=== PATIENT | female | born 1945 | race Caucasian/White ===

== ENCOUNTER 2021-04-29 06:51 | Day surgery (SDC) | payer MEDICARE ==
[2021-04-28 12:38] LABS: BASOPHILS % (AUTO) 0.4 % (0-1); EOSINOPHILS % (AUTO) 0.6 % (0-6); HEMATOCRIT 36.2 % (35.0-45.0); LYMPHOCYTES # (AUTO) 1.1 X10'3 (1.1-4.8); LYMPHOCYTES % (AUTO) 17.6 % (21-51); MEAN CORPUSCULAR HEMOGLOBIN 29.2 PG (27.0-31.0); MEAN CORPUSCULAR VOLUME 88.3 FL (78-98); MONOCYTES # (AUTO) 0.5 X10'3 (0-0.9); MONOCYTES % (AUTO) 7.4 % (2-12); NEUTROPHILS # (AUTO) 4.7 X10'3 (1.8-7.7); PLATELET COUNT 404 X10'3 (140-440); RED CELL DISTRIBUTION WIDTH 15.8 % (11.5-14.5); WHITE BLOOD COUNT 6.4 X10'3 (4.5-11.0)
[2021-04-28 12:52] LABS: PARTIAL THROMBOPLASTIN TIME 27 SECONDS (22-32)
[2021-04-28 13:16] LABS: ALANINE AMINOTRANSFERASE 17 U/L (12-78); ALBUMIN 3.9 G/DL (3.4-5.0); ALBUMIN/GLOBULIN RATIO 1.1 (1.1-1.5); ALKALINE PHOSPHATASE 88 IU/L (46-116); ANION GAP 13 (8-16); ASPARTATE AMINO TRANSFERASE 21 U/L (10-37); BILIRUBIN,TOTAL 0.6 MG/DL (0.1-1.0); BLOOD UREA NITROGEN 18 MG/DL (7-18); BUN/CREATININE RATIO 22.5 (6.6-38.0); CALCIUM 9.1 MG/DL (8.5-10.1); CHLORIDE 101 MMOL/L (99-107); GLUCOSE 91 MG/DL (70-104); POTASSIUM 3.9 MMOL/L (3.5-5.1); SODIUM 140 MMOL/L (135-145); TOTAL CARBON DIOXIDE 26.4 MMOL/L (24-32); TOTAL PROTEIN 7.6 G/DL (6.4-8.2); eGFR 70 ML/MIN
[~2021-04-29] VITALS: Ht 170.2 cm; Wt 87.3 kg
[2021-04-29] VITALS (12 sets, daily range): BP systolic 93–123; BP diastolic 55–87
[2021-04-29] MEDS ORDERED: normal saline 1,000 ML IV SCH (07:15)
[2021-04-29] MEDS ORDERED: diphenhydrAMINE 25mg capsule PO PRN (07:15)
[2021-04-29] MEDS ORDERED: LORazepam 0.5 MG tablet PO PRN (07:15)
[2021-04-29] MEDS ORDERED: ATOR10TA70 PO (07:45)
[2021-04-29] MEDS ORDERED: BENA40TA72 PO (07:45)
[2021-04-29] MEDS ORDERED: HYDR25TA4 PO (07:45)
[2021-04-29] MEDS ORDERED: CABE0.5T2 PO (07:45)
[2021-04-29] MEDS ORDERED: ALEN70TA80 PO (07:45)
[2021-04-29] MEDS ORDERED: AMLO10TA13 PO (07:45)
[2021-04-29] MEDS ORDERED: CITA20TA26 PO (07:45)
[2021-04-29] MEDS ORDERED: fentaNYL/PF 50MCG/1 ML 2ML syringe ONE (08:57)
[2021-04-29] MEDS ORDERED: midazolam 1 mg/ML 2ml injection ONE (08:57)
[2021-04-29] MEDS ORDERED: LIDOcaine 1% (10mg/ml)w/preservative injection 20ml MDV ONE (08:58)
[2021-04-29] MEDS ORDERED: iohexol 350MG/ML 100ml bottle IV ONE (08:58)
[2021-04-29] MEDS ORDERED: iohexol 350 MG/ML 50ML vial IV ONE (08:58)
[2021-04-29] MEDS ORDERED: proCHLORperazine 10 MG/2 ml inj IV PRN (10:30)
[2021-04-29] MEDS ORDERED: nitroGLYCERIN 0.4mg SUBLingual tab SL PRN (10:30)
[2021-04-29] MEDS ORDERED: HYDROcodone/acetaminophen 10/325mg tab PO PRN (10:30)
[2021-04-29] MEDS ORDERED: HYDROcodone/acetaminophen 5mg/325mg tablet PO PRN (10:30)
[2021-04-29] MEDS ORDERED: OXAZEpam 15mg capsule PO PRN (10:30)
[2021-04-29] MEDS ORDERED: ondansetron/PF 4mg/2ml inj IV PRN (10:30)
== END 2021-04-29 15:55 | disposition home or self-care (01) ==
LOC: SSTAY O 06:51
PROVIDERS: ATTEND Internal Medicine Cardiovascular Disease
DX: R94.39 Abnormal result of other cardiovascular function study (principal); I25.10 Atherosclerotic heart disease of native coronary artery without angina pectoris; I10 Essential (primary) hypertension; E78.5 Hyperlipidemia, unspecified; Z87.891 Personal history of nicotine dependence; Z79.899 Other long term (current) drug therapy; Z79.01 Long term (current) use of anticoagulants; Z88.5 Allergy status to narcotic agent; Z96.652 Presence of left artificial knee joint; Z98.1 Arthrodesis status
CPT/HCPCS: 36415; 71046; 80053; 85025; 85610; 85730; 93005; 93458; 99152; C1760; C1769; J1644; J2001; J2250; J3010; J7030; Q0163; Q9967; 99153; A4620; A6258